=== PATIENT | female | born 1970 | race African-American/Black ===

== ENCOUNTER 2019-04-01 07:52 | Emergency (ER) | payer MEDICAID ==
[~2019-04-01] VITALS: Ht 154.9 cm; Wt 72.6 kg
[~2019-04-01 07:52] MED LIST: CEFD300C PO; MAGN400T5 PO; OXYC10TA PO; [UNRECOGNIZED DRUG - REMARK]
[2019-04-01] MEDS ORDERED: IV NORMAL SALINE 1000ML BAG 1,000 ML IV SCH (08:23)
--- NOTE | 2019-04-01 08:28 | PHYS DOC ---
Adult General Chief Complaint Chief Complaint: DIZZY/LIGHT HEADED HPI HPI Patient is a 49-year-old female who presents with complaint of sore throat, fever, chills, nausea with vomiting and diarrhea that all started yesterday. She also indicates that she has pain with urination. She rates her symptoms as moderate. She states that she is having difficulty with keeping anything down. She states that nothing is improving her symptoms.[] Review of Systems Review of Systems Constitutional: Denies fever or chills [] HENT: Positive for sore throat [] Respiratory: Denies cough or shortness of breath [] Cardiovascular: No additional information not addressed in HPI [] GI: Denies abdominal pain. Complains of nausea with vomiting and diarrhea [] : Complains of dysuria[] Neurologic: Complains of headache without focal weakness or sensory changes [] All other systems were reviewed and found to be within normal limits, except as documented in this note. Current Medications Current Medications Current Medications Medications (Trade) Dose Ordered Sig/Flo Start Time Stop Time Status Last Admin Dose Admin Acetaminophen (Tylenol) 1,000 mg 1X ONCE 04/01/19 09:00 04/01/19 09:01 DC 04/01/19 08:46 1,000 MG Azithromycin (Zithromax) 500 mg 1X ONCE 04/01/19 09:30 04/01/19 09:31 DC 04/01/19 09:58 500 MG Ketorolac Tromethamine (Toradol 30mg Vial) 30 mg 1X ONCE 04/01/19 09:00 04/01/19 09:01 DC 04/01/19 08:47 30 MG Ondansetron HCl (Zofran) 4 mg 1X ONCE 04/01/19 09:00 04/01/19 09:01 DC 04/01/19 08:47 4 MG Sodium Chloride 1,000 ml @ 1,000 mls/hr Q1H 04/01/19 08:23 04/01/19 09:22 DC 04/01/19 08:47 1,000 MLS/HR Trimethoprim/ Sulfamethoxazole (Bactrim Ds) 1 tab 1X ONCE 04/01/19 09:30 04/01/19 09:31 DC 04/01/19 09:58 1 TAB Allergies Allergies Allergies Coded Allergies Type Severity Reaction Last Updated Verified Penicillins Allergy Intermediate 01/08/19 Yes Physical Exam Physical Exam Constitutional: Well developed, well nourished, no acute distress, non-toxic appearance. [] HENT: Normocephalic, atraumatic, bilateral external ears normal, there is tonsillar swelling, erythema with patchy exudates, nose normal. [] Eyes: PERRLA, EOMI, conjunctiva normal, no discharge. [] Neck: Normal range of motion, no tenderness, supple. [] Cardiovascular: Tachycardic rate with regular rhythm[] Lungs & Thorax: Bilateral breath sounds clear to auscultation [] Abdomen: Bowel sounds normal, soft, no tenderness. [] Skin: Warm, dry, no erythema, no rash. [] Extremities: No tenderness, no cyanosis, no clubbing, ROM intact, no edema. [] Neurologic: Alert and oriented X 3, no focal deficits noted. [] Current Patient Data Vital Signs Vital Signs Date Time Temp Pulse Resp B/P (MAP) Pulse Ox O2 Delivery O2 Flow Rate FiO2 04/01/19 09:59 99.2 99.2 04/01/19 08:45 104 18 96 04/01/19 08:14 132/82 (99) Room Air Lab Values Laboratory Tests Test 04/01/19 08:00 04/01/19 08:34 Urine Collection Type Unknown Urine Color Desire Urine Clarity Turbid Urine pH 5.5 Urine Specific Goessel 1.025 Urine Protein 100 mg/dL (NEG-TRACE) Urine Glucose (UA) Negative mg/dL (NEG) Urine Ketones (Stick) Trace mg/dL (NEG) Urine Blood Large (NEG) Urine Nitrite Positive (NEG) Urine Bilirubin Small (NEG) Urine Urobilinogen Dipstick 1.0 mg/dL (0.2 mg/dL) Urine Leukocyte Esterase Large (NEG) Urine RBC 3-5 /HPF (0-2) Urine WBC >40 /HPF (0-4) Urine Squamous Epithelial Cells Mod /LPF Urine Bacteria Many /HPF (0-FEW) White Blood Count 10.4 x10^3/uL (4.0-11.0) Red Blood Count 4.04 x10^6/uL (3.50-5.40) Hemoglobin 12.1 g/dL (12.0-15.5) Hematocrit 35.6 % (36.0-47.0) L Mean Corpuscular Volume 88 fL (79-100) Mean Corpuscular Hemoglobin 30 pg (25-35) Mean Corpuscular Hemoglobin Concent 34 g/dL (31-37) Red Cell Distribution Width 14.7 % (11.5-14.5) H Platelet Count 310 x10^3/uL (140-400) Neutrophils (%) (Auto) 69 % (31-73) Lymphocytes (%) (Auto) 16 % (24-48) L Monocytes (%) (Auto) 15 % (0-9) H Eosinophils (%) (Auto) 0 % (0-3) Basophils (%) (Auto) 0 % (0-3) Neutrophils # (Auto) 7.2 x10^3/uL (1.8-7.7) Lymphocytes # (Auto) 1.6 x10^3/uL (1.0-4.8) Monocytes # (Auto) 1.5 x10^3/uL (0.0-1.1) H Eosinophils # (Auto) 0.0 x10^3/uL (0.0-0.7) Basophils # (Auto) 0.0 x10^3/uL (0.0-0.2) Sodium Level 134 mmol/L (136-145) L Potassium Level 3.6 mmol/L (3.5-5.1) Chloride Level 98 mmol/L (98-107) Carbon Dioxide Level 20 mmol/L (21-32) L Anion Gap 16 (6-14) H Blood Urea Nitrogen 9 mg/dL (7-20) Creatinine 0.7 mg/dL (0.6-1.0) Estimated GFR (Cockcroft-Gault) 106.7 BUN/Creatinine Ratio 13 (6-20) Glucose Level 179 mg/dL (70-99) H Calcium Level 9.5 mg/dL (8.5-10.1) Total Bilirubin 0.8 mg/dL (0.2-1.0) Aspartate Amino Transferase (AST) 13 U/L (15-37) L Alanine Aminotransferase (ALT) 12 U/L (14-59) L Alkaline Phosphatase 121 U/L (46-116) H Total Protein 8.8 g/dL (6.4-8.2) H Albumin 3.0 g/dL (3.4-5.0) L Albumin/Globulin Ratio 0.5 (1.0-1.7) L Lipase 115 U/L (73-393) Laboratory Tests 04/01/19 08:34 Laboratory Tests 04/01/19 08:34 EKG EKG [] Radiology/Procedures Radiology/Procedures [] Course & Med Decision Making Course & Med Decision Making Pertinent Labs and Imaging studies reviewed. (See chart for details) [] Dragon Disclaimer Dragon Disclaimer This electronic medical record was generated, in whole or in part, using a voice recognition dictation system. Departure Departure Impression: Primary Impression: Gastroenteritis Additional Impressions: Tonsillitis UTI (urinary tract infection) Disposition: HOME, SELF-CARE Condition: STABLE Referrals: NO PCP (PCP) Patient Instructions: Tonsillitis, Urinary Tract Infection, Viral Gastroenteritis Scripts Ondansetron Hcl (ZOFRAN) 4 Mg Tablet 4 MG PO PRN TID PRN for NAUSEA, #15 TAB nausea/vomiting Prov: PIO TRAN Jr. DO 04/01/19 Sulfamethoxazole/Trimethoprim (BACTRIM DS TABLET) 1 Each Tablet 1 TAB PO BID for 7 Days, #14 TAB 0 Refills Prov: PIO TRAN Jr. DO 04/01/19 Azithromycin (ZITHROMAX) 250 Mg Tablet 1 PKG PO UD, #6 TAB Prov: PIO TRAN Jr. DO 04/01/19 Problem Qualifiers Additional Impressions: UTI (urinary tract infection) Urinary tract infection type: site unspecified Hematuria presence: with hematuria Qualified Codes: N39.0 - Urinary tract infection, site not specified; R31.9 - Hematuria, unspecified PIO TRAN Jr. DO Apr 01, 2019 08:28
[2019-04-01 08:37] LABS: BILIRUBIN,URINE SMALL (NEG); CLARITY,URINE TURBID; COLOR,URINE AMBER; NITRITE,URINE POSITIVE (NEG); PH,URINE 5.5; PROTEIN,URINE 100 mg/dL (NEG-TRACE)
[2019-04-01 08:47] LABS: BACTERIA,URINE MANY /HPF (0-FEW); SQUAMOUS EPITHELIAL CELL,UR MOD /LPF; WBC,URINE >40 /HPF (0-4)
[2019-04-01 08:49] LABS: CALCIUM 9.5 mg/dL (8.5-10.1); CREATININE 0.7 mg/dL (0.6-1.0); GFR 106.7; POTASSIUM 3.6 mmol/L (3.5-5.1)
[2019-04-01 08:52] LABS: BASO % 0 % (0-3); EOS % 0 % (0-3); HEMATOCRIT 35.6 % (36.0-47.0); HEMOGLOBIN 12.1 g/dL (12.0-15.5); LYMPH # 1.6 x10^3/uL (1.0-4.8); LYMPH % 16 % (24-48); MEAN CORPUSCULAR HEMOGLOBIN 30 pg (25-35); MEAN CORPUSCULAR HGB CONC 34 g/dL (31-37); MEAN CORPUSCULAR VOLUME 88 fL (79-100); MONO # 1.5 x10^3/uL (0.0-1.1); MONO % 15 % (0-9); NEUT # 7.2 x10^3/uL (1.8-7.7); NEUT % 69 % (31-73); PLATELET COUNT 310 x10^3/uL (140-400); RED BLOOD COUNT 4.04 x10^6/uL (3.50-5.40); RED CELL DISTRIBUTION WIDTH 14.7 % (11.5-14.5); WHITE BLOOD COUNT 10.4 x10^3/uL (4.0-11.0)
[2019-04-01 08:55] LABS: ALBUMIN/GLOBULIN RATIO 0.5 (1.0-1.7); TOTAL BILIRUBIN 0.8 mg/dL (0.2-1.0); TOTAL PROTEIN 8.8 g/dL (6.4-8.2)
[2019-04-01] MEDS ORDERED: ONDANSETRON PF 4 MG/2 ML VIAL. IV ONE (09:00)
[2019-04-01] MEDS ORDERED: ACETAMINOPHEN 500 MG TABLET PO ONE (09:00)
[2019-04-01] MEDS ORDERED: KETOROLAC 30 MG/ML VIAL. IV ONE (09:00)
[2019-04-01] MEDS ORDERED: AZITHROMYCIN 250 MG TABLET. PO ONE (09:30)
[2019-04-01] MEDS ORDERED: SMZ/TMP 800/160MG TABLET. PO ONE (09:30)
[2019-04-01 09:45] VITALS: BP 99/58
[2019-04-01] MEDS ORDERED: SULF1TAB24 PO (10:18)
[2019-04-01] MEDS ORDERED: AZIT250T PO (10:18)
[2019-04-01] MEDS ORDERED: ONDA4TAB7 PO (10:18)
== END 2019-04-01 10:24 | disposition home or self-care (01) ==
LOC: ER 07:52
DX: K52.9 Noninfective gastroenteritis and colitis, unspecified (principal); N39.0 Urinary tract infection, site not specified; J03.90 Acute tonsillitis, unspecified; Z88.0 Allergy status to penicillin
CPT/HCPCS: 36415; 80053; 81001; 83690; 85025; 87086; 96361; 96374; 96375; 99284; J1885; J2405; J7030; Q0144

== ENCOUNTER 2019-06-26 13:17 | Emergency (ER) | payer MEDICAID ==
[~2019-06-26 13:17] MED LIST changes: +AZIT250T PO; +ONDA4TAB7 PO; +SULF1TAB24 PO
[2019-06-26 16:25] VITALS: BP 142/91
--- NOTE | 2019-06-26 16:49 | PHYS DOC ---
Past Medical History Past Medical History: CVA, Seizure Additional Past Medical Histor: ANEURISYM Past Surgical History: Other Additional Past Surgical Histo: ECTOPIC Alcohol Use: Sober Drug Use: None Adult General Chief Complaint Chief Complaint: WRIST PAIN HPI HPI Patient is a 49 year old female who presents with patient states she was going down a flight of 12 with stairs when she slipped and fell down them. She states she did hit her head but denies LOC and blood thinners. She complains of left wrist pain and left middle finger pain. She rates her pain a 10 out 10. Review of Systems Review of Systems Musculoskeletal: Denies back pain. Left wrist and left middle finger joint pain [] All other systems were reviewed and found to be within normal limits, except as documented in this note. Current Medications Current Medications Current Medications Medications (Trade) Dose Ordered Sig/Flo Start Time Stop Time Status Last Admin Dose Admin Fentanyl Citrate (Fentanyl 2ml Vial) 50 mcg 1X ONCE 06/26/19 17:00 06/26/19 17:04 DC 06/26/19 17:07 50 MCG Lidocaine HCl (Lidocaine 1% 20ml Vial) 20 ml 1X ONCE 06/26/19 17:45 06/26/19 17:46 DC 06/26/19 17:45 20 ML Allergies Allergies Allergies Coded Allergies Type Severity Reaction Last Updated Verified Penicillins Allergy Intermediate 01/08/19 Yes Physical Exam Physical Exam Constitutional: Well developed, well nourished, no acute distress, non-toxic appearance. [] HENT: Normocephalic, atraumatic, bilateral external ears normal, oropharynx moist, no oral exudates, nose normal. [] Eyes: PERRLA, EOMI, conjunctiva normal, no discharge. [] Neck: Normal range of motion, no tenderness, supple, no stridor. [] Cardiovascular:Heart rate regular rhythm, no murmur [] Lungs & Thorax: Bilateral breath sounds clear to auscultation [] Abdomen: Bowel sounds normal, soft, no tenderness, no masses, no pulsatile masses. [] Skin: Warm, dry, no erythema, no rash. [] Back: No tenderness, no CVA tenderness. [] Extremities: Left dorsal and radial wrist tenderness, no cyanosis, no clubbing, Left wrist and Left middle finger ROM not intact, 2+ edema. [] Neurologic: Alert and oriented X 3, normal motor function, normal sensory function, no focal deficits noted. [] Psychologic: Affect normal, judgement normal, mood normal. [] Current Patient Data Vital Signs Vital Signs Date Time Temp Pulse Resp B/P (MAP) Pulse Ox O2 Delivery O2 Flow Rate FiO2 06/26/19 17:07 14 99 Room Air 06/26/19 16:25 98.7 70 142/91 (108) 98.7 EKG EKG [] Radiology/Procedures Radiology/Procedures [] Impressions: [facility] [address] [place] [address] IMAGING REPORT Signed PATIENT: MELIZA SARKAR ACCOUNT: [id number] : 1970 LOCATION: ER AGE: 49 SEX: F EXAM STATUS: REG ER ORD. PHYSICIAN: ROMULO CONCEPCION APRN REASON: fall PROCEDURE: WRIST 3V LEFT Exam: Left wrist 3 views. Left hand 3 views INDICATION: Fall TECHNIQUE: Frontal, lateral and oblique views of the left wrist and left hand Comparisons: None FINDINGS: Wrist: Minimally displaced transverse fracture through the distal left radial metaphysis. There is surrounding soft tissue swelling. Joint spaces are well-maintained. Bone mineralization is normal. Hand: There is a dislocation at the third PIP joint with ulnar deviation of the middle phalanx. There is a small ossific fragment anterior to the base of the middle phalanx which may represent small fracture fragment, likely from the base of the middle phalanx. There is diffuse surrounding soft tissue swelling. IMPRESSION: 1. Dislocation at the third digit PIP joint with small fracture fragment at the base of the middle phalanx anteriorly. 2. Minimally displaced transverse fracture through the left radial metaphysis. Electronically signed by: Racheal Beltrán MD (06/26/2019 5:18 PM) [id number] DICTATED and SIGNED BY: RACHEAL BELTRÁN MD DATE: 06/26/[address] [facility] [address] [place], [place] [id number] IMAGING REPORT Signed PATIENT: MELIZA SARKAR ACCOUNT: [id number] : 1970 LOCATION: ER AGE: 49 SEX: F EXAM STATUS: REG ER ORD. PHYSICIAN: ROMULO CONCEPCION APRN REASON: fall PROCEDURE: CT HEAD AND CERVICAL SPINE WO CT HEAD AND CERVICAL SPINE WO dated 06/26/2019 4:43 PM. Comparison: None. Clinical Indication: Pain after fall. Technical factors: Contiguous 5 mm axial images of the head were obtained from the skullbase to the vertex. No contrast was administered. In addition, 3 mm axial images of the cervical spine were acquired with thin cut coronal and sagittal reconstructions. One or more of the following individualized dose reduction techniques were utilized for this examination: 1. Automated exposure control 2. Adjustment of the mA and/or kV according to patient size 3. Use of iterative reconstruction technique Findings head: The lateral ventricles are compressed is a right frontal ventricular catheter in place. The third and fourth toes are also very small and not well visualized. No midline shift or mass effect. There is a surgical clip at the midline near the level of the anterior communicating artery. There is patchy low density in the right frontal lobe along the ventricular catheter margins. There is also focal areas of low density encephalomalacia in the parasagittal right frontal lobe inferiorly and within the parasagittal right frontal lobe near the vertex. No hemorrhage or extra-axial collection. Posterior fossa and brainstem unremarkable. No apparent calvarial abnormality. There is evidence of prior right frontotemporal craniotomy. Mild mucosal thickening of the bilateral maxillary sinus and sphenoid sinuses with small mucous retention cysts in the left maxillary sinus. Mastoid air cells are clear. IMPRESSION HEAD: 1. No evidence of acute intracranial hemorrhage or mass. 2. The ventricular system is small with right frontal ventricular catheter in place. This could be related to over shunting. Recommend comparison to any prior imaging studies to assess for interval change. 3. Focal zones of encephalomalacia in the parasagittal right frontal lobe and within the right frontal lobe along the catheter entrance site, likely related to old infarcts. 4. 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 5. Mild sinus disease. Findings cervical spine: Images were acquired from the skull base to T1. There is straightening of the normal cervical lordosis, otherwise sagittal alignment is anatomic. Vertebral body heights are maintained. No prevertebral soft tissue swelling. Posterior elements are intact. No fractures are identified. Mild to moderate hypertrophic change of the superior and inferior endplates throughout. Multiple level facet arthropathy with multilevel uncovertebral spurring. There is possible mild broad-based bulging at C4-C5 and C5-C6 with mild central canal narrowing at these levels. The foramina appear adequate. Visualized soft tissue structures unremarkable. Limited imaged portions of the lung apices are clear. IMPRESSION CERVICAL SPINE: 1. No evidence of fracture or malalignment. 2. Mild multilevel cervical spondylosis. Electronically signed by: Heri Boss MD (06/26/2019 5:18 PM) [facility] DICTATED and SIGNED BY: HERI BOSS MD DATE: 06/26/19 1718 Course & Med Decision Making Course & Med Decision Making Alert and oriented. Ambulatory with a steady gait. PERRLA. Patient denies dizziness, headache, visual changes, numbness or tingling, chest pain, shortness of air, back pain, neck pain. Left wrist is tender to the dorsal and radial side with 2+ swelling. Patient does not have range of motion in the wrist. No joint laxity. Patient has tenderness in the left middle finger with deformity at the PIP joint and there is 2+ swelling. Radial pulses strong and present. Cap refill less than 3 seconds. Skin pink warm and dry. Patient can bend all fingers except for the left middle finger. Full range of motion of the neck. There is no tenderness to the cervical spine, thoracic spine, lumbar spine. No bruising to her back. Abdomen soft and nontender. Lungs are clear to auscultation all lobes. Vital signs within normal limits. Volar splint placed to left wrist. IMPRESSION: 1. Dislocation at the third digit PIP joint with small fracture fragment at the base of the middle phalanx anteriorly. 2. Minimally displaced transverse fracture through the left radial metaphysis. Reduction of Left middle finger: Area of needle insertion cleaned with betadine Digitally numbed with Lidocaine Finger is place back in place and finger bends at PIP joint. Xray read by Dr Valentine states finger has successfully been reduced. I have spoken to Dr Horton who has reviewed her radiology films. He states to splint her and have her come and see him in office sometime next week. Splint Assessment: Neurovascularly intact post splint placement with good fit. Gina Disclacate Fuentes Disclaimer This electronic medical record was generated, in whole or in part, using a voice recognition dictation system. Departure Departure Impression: Primary Impression: Wrist fracture, left Additional Impression: Fracture of phalanx of left middle finger Disposition: 01 HOME, SELF-CARE Condition: STABLE Referrals: NO PCP (PCP) Patient Instructions: Finger Fracture, Wrist Fracture Additional Instructions: Follow-up with orthopedic doctor as soon as possible. Take medication for pain as prescribed. Keep the arm elevated to help with swelling. Scripts Hydrocodone/Apap 5-325 (NORCO 5-325 TABLET) 1 Each Tablet 1 TAB PO PRN Q6HRS PRN for PAIN, #10 TAB 0 Refills Prov: ROMULO CONCEPCION APRN 06/26/19 Problem Qualifiers Primary Impression: Wrist fracture, left Encounter type: initial encounter Fracture type: closed Qualified Codes: S62.102A - Fracture of unspecified carpal bone, left wrist, initial en counter for closed fracture Additional Impression: Fracture of phalanx of left middle finger Encounter type: initial encounter Fracture type: closed Phalanx: middle Fracture alignment: displaced Qualified Codes: S62.623A - Displaced fracture of middle phalanx of left middle finger, initial encounter for closed fracture ROMULO CONCEPCION APRN Jun 26, 2019 16:49
[2019-06-26] MEDS ORDERED: fentaNYL PF VIAL 100 MCG/2 ML VIAL IVP ONE (17:00)
--- NOTE | 2019-06-26 17:21 | RAD ---
Exam: Left wrist 3 views. Left hand 3 views INDICATION: Fall TECHNIQUE: Frontal, lateral and oblique views of the left wrist and left hand Comparisons: None FINDINGS: Wrist: Minimally displaced transverse fracture through the distal left radial metaphysis. There is surrounding soft tissue swelling. Joint spaces are well-maintained. Bone mineralization is normal. Hand: There is a dislocation at the third PIP joint with ulnar deviation of the middle phalanx. There is a small ossific fragment anterior to the base of the middle phalanx which may represent small fracture fragment, likely from the base of the middle phalanx. There is diffuse surrounding soft tissue swelling. IMPRESSION: 1. Dislocation at the third digit PIP joint with small fracture fragment at the base of the middle phalanx anteriorly. 2. Minimally displaced transverse fracture through the left radial metaphysis. Electronically signed by: Racheal Mccormick MD (06/26/2019 5:18 PM) [facility]
--- NOTE | 2019-06-26 17:21 | RAD ---
CT HEAD AND CERVICAL SPINE WO dated 06/26/2019 4:43 PM. Comparison: None. Clinical Indication: Pain after fall. Technical factors: Contiguous 5 mm axial images of the head were obtained from the skullbase to the vertex. No contrast was administered. In addition, 3 mm axial images of the cervical spine were acquired with thin cut coronal and sagittal reconstructions. One or more of the following individualized dose reduction techniques were utilized for this examination: 1. Automated exposure control 2. Adjustment of the mA and/or kV according to patient size 3. Use of iterative reconstruction technique Findings head: The lateral ventricles are compressed is a right frontal ventricular catheter in place. The third and fourth toes are also very small and not well visualized. No midline shift or mass effect. There is a surgical clip at the midline near the level of the anterior communicating artery. There is patchy low density in the right frontal lobe along the ventricular catheter margins. There is also focal areas of low density encephalomalacia in the parasagittal right frontal lobe inferiorly and within the parasagittal right frontal lobe near the vertex. No hemorrhage or extra-axial collection. Posterior fossa and brainstem unremarkable. No apparent calvarial abnormality. There is evidence of prior right frontotemporal craniotomy. Mild mucosal thickening of the bilateral maxillary sinus and sphenoid sinuses with small mucous retention cysts in the left maxillary sinus. Mastoid air cells are clear. IMPRESSION HEAD: 1. No evidence of acute intracranial hemorrhage or mass. 2. The ventricular system is small with right frontal ventricular catheter in place. This could be related to over shunting. Recommend comparison to any prior imaging studies to assess for interval change. 3. Focal zones of encephalomalacia in the parasagittal right frontal lobe and within the right frontal lobe along the catheter entrance site, likely related to old infarcts. 4. 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 5. Mild sinus disease. Findings cervical spine: Images were acquired from the skull base to T1. There is straightening of the normal cervical lordosis, otherwise sagittal alignment is anatomic. Vertebral body heights are maintained. No prevertebral soft tissue swelling. Posterior elements are intact. No fractures are identified. Mild to moderate hypertrophic change of the superior and inferior endplates throughout. Multiple level facet arthropathy with multilevel uncovertebral spurring. There is possible mild broad-based bulging at C4-C5 and C5-C6 with mild central canal narrowing at these levels. The foramina appear adequate. Visualized soft tissue structures unremarkable. Limited imaged portions of the lung apices are clear. IMPRESSION CERVICAL SPINE: 1. No evidence of fracture or malalignment. 2. Mild multilevel cervical spondylosis. Electronically signed by: Heri Boss MD (06/26/2019 5:18 PM) [facility]
[2019-06-26] MEDS ORDERED: HYDR-3164 PO (17:31)
[2019-06-26] MEDS ORDERED: LIDOCAINE 1% Multi-Dose 20 ML VIAL. INJ ONE (17:45)
--- NOTE | 2019-06-26 19:34 | RAD ---
HAND LEFT 2V DATE: 06/26/2019 6:23 PM INDICATION: Pain, third digit dislocation status post reduction COMPARISON: None. FINDINGS/ IMPRESSION: Interval reduction of the previously described third PIP joint dislocation, now in anatomic alignment. Tiny osseous fragment again noted at the PIP joint. Third digit soft tissue swelling. Unchanged nondisplaced distal radius fracture. Electronically signed by: Aydin Savage MD (06/26/2019 7:31 PM) [facility]
== END 2019-06-26 19:15 | disposition home or self-care (01) ==
LOC: ER 13:17
DX: S62.102A Fracture of unspecified carpal bone, left wrist, initial encounter for closed fracture (principal); S62.623A Displaced fracture of middle phalanx of left middle finger, initial encounter for closed fracture; M47.812 Spondylosis without myelopathy or radiculopathy, cervical region; R51 Headache; Z86.73 Personal history of transient ischemic attack (TIA), and cerebral infarction without residual deficits; Z88.0 Allergy status to penicillin; W01.0XXA Fall on same level from slipping, tripping and stumbling without subsequent striking against object, initial encounter; Y93.89 Activity, other specified; Y92.89 Other specified places as the place of occurrence of the external cause; Y99.8 Other external cause status
CPT/HCPCS: 26725; 29125; 70450; 72125; 73110; 73120; 73130; 96374; 99284; J3010